=== PATIENT | male | born 1990 | race Caucasian/White ===

== ENCOUNTER 2023-02-07 16:21 | Emergency (ER) | payer OTHER, SELFPAY ==
[2023-02-07 17:13] VITALS: BP 129/87; PULSE 77; RESP 16; TEMP 36.7; O2SAT 98; BMI 30.3
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
[2023-02-07 19:22] VITALS: BP 151/95; PULSE 80; O2SAT 100
[2023-02-07 20:11] VITALS: BP 158/89; PULSE 74; RESP 18; O2SAT 97
== END 2023-02-07 20:32 | disposition home or self-care (01) ==
PROVIDERS: Emergency Provider Emergency Medicine Emergency Medical Services
DX: G51.0 Bell's palsy (principal); V43.92XA Unspecified car occupant injured in collision with other type car in traffic accident, initial encounter; Z79.899 Other long term (current) drug therapy; Z87.891 Personal history of nicotine dependence
CPT/HCPCS: 70450; 99284